=== PATIENT | male | born 1985 | race Caucasian/White ===

== ENCOUNTER 2016-08-20 10:24 | Emergency (ER) | payer MEDICARE ==
--- NOTE | 2016-08-20 11:19 | ER Document Report ---
ED Medical Screen (RME) - General Stated Complaint: FELL/FOOT PAIN Time seen by provider: 11:18 Mode of Arrival: Ambulatory Information source: Patient Notes: 31-year-old male slipped getting out of the bathtub yesterday and hit the wall injuring his dorsal left foot over the second and third metatarsals. It is swollen and bruised. He is walking with a limp. I have greeted and performed a rapid initial assessment of this patient. A comprehensive ED assessment, evaluation of the patient, analysis of test results , and completion of the medical decision making process will be contacted by additional ED providers. TRAVEL OUTSIDE OF THE [place] IN LAST 30 DAYS: No - Related Data Allergies/Adverse Reactions: diphenhydramine HCl [From Benadryl] Allergy (Mild, Verified 08/20/16 11:13) Hives Past Medical History - Social History Frequency of alcohol use: None Drug Abuse: None - Past Medical History Cardiac Medical History: Reports: Hx Hypercholesterolemia, Hx Hypertension Denies: Hx Atrial Fibrillation Pulmonary Medical History: Reports: Hx Asthma - inhalers, Hx Bronchitis, Hx Pneumonia, Hx Sleep Apnea - uses C-Pap Endocrine Medical History: Reports: Hx Diabetes Mellitus Type 2, Hx Hypothyroidism. Denies: Hx Diabetes Mellitus Type 1 Renal/ Medical History: Denies: Hx Peritoneal Dialysis GI Medical History: Reports: Hx Gastroesophageal Reflux Disease Musculoskeltal Medical History: Reports Hx Arthritis, Reports Hx Musculoskeletal Deformity Psychiatric Medical History: Reports: Hx Anxiety, Hx Depression Past Surgical History: Reports: Hx Adenoidectomy, Hx Myringotomy. Denies: Hx Abdominal Surgery, Hx Appendectomy, Hx Bowel Surgery, Hx Cardiac Catheterization , Hx Cardiac Surgery, Hx Cholecystectomy, Hx Genitourinary Surgery, Hx Kidney ( Renal Surgery), Hx Neurologic Surgery, Hx Nose Surgery, Hx Open Heart Surgery, Hx Oral Surgery, Hx Orthopedic Surgery, Hx Pancreatic Surgery, Hx Pituitary Surgery, Hx Rectal Surgery, Hx Testicular Surgery, Hx Thyroid Surgery, Hx Tonsillectomy, Hx Urinary Tract Surgery, Hx Vascular Surgery - Immunizations Hx Diphtheria, Pertussis, Tetanus Vaccination: No - unknown Physical Exam - Vital signs Vitals: Temp Pulse Resp BP Pulse Ox 97.8 F 101 H 18 142/87 H 97 08/20/16 10:32 08/20/16 10:32 08/20/16 10:32 08/20/16 10:32 08/20/16 10:32 Course - Vital Signs Vital signs: Temp Pulse Resp BP Pulse Ox 97.8 F 101 H 18 142/87 H 97 08/20/16 10:32 08/20/16 10:32 08/20/16 10:32 08/20/16 10:32 08/20/16 10:32
--- NOTE | 2016-08-20 12:44 | ER Document Report ---
ED Extremity Problem, Lower - General Chief Complaint: Foot Injury Stated Complaint: FELL/FOOT PAIN Time seen by provider: 12:41 Mode of Arrival: Ambulatory Information source: Patient Notes: 31-year-old male presents to ED for pain in his second toe on the left foot after kicking a wall accidentally yesterday. TRAVEL OUTSIDE OF THE [place] IN LAST 30 DAYS: No - HPI Patient complains to provider of: Injury, Pain, Swelling Location: 2nd Toe - Left, 3rd Toe Occurred: Yesterday Where: Home, Indoors Onset/Duration: Sudden Quality of pain: Achy, Sharp Severity: Moderate Pain Level: 2 Context: Other - Hit toes on wall and did not at the time Recent injury: Yes Associated symptoms: Painful ambulation Exacerbated by: Movement, Walking Relieved by: Elevation, Ice, Rest - Related Data Allergies/Adverse Reactions: diphenhydramine HCl [From Benadryl] Allergy (Mild, Verified 08/20/16 11:13) Hives Past Medical History - General Information source: Patient - Social History Smoking Status: Never Smoker Frequency of alcohol use: None Drug Abuse: None Lives with: Family Family History: CVA, DM, Hyperlipidemia, Hypertension, Malignancy, Thyroid Disfunction Patient has suicidal ideation: No Patient has homicidal ideation: No - Past Medical History Cardiac Medical History: Reports: Hx Hypercholesterolemia, Hx Hypertension Pulmonary Medical History: Reports: Hx Asthma - inhalers, Hx Bronchitis, Hx Pneumonia, Hx Sleep Apnea - uses C-Pap EENT Medical History: Reports: None Neurological Medical History: Reports: None Endocrine Medical History: Reports: Hx Diabetes Mellitus Type 2, Hx Hypothyroidism. Denies: Hx Diabetes Mellitus Type 1 Renal/ Medical History: Reports: None Malignancy Medical History: Reports None GI Medical History: Reports: Hx Gastroesophageal Reflux Disease Musculoskeltal Medical History: Reports Hx Arthritis, Reports Hx Musculoskeletal Deformity Skin Medical History: Reports None Psychiatric Medical History: Reports: Hx Anxiety, Hx Depression Traumatic Medical History: Reports: None Infectious Medical History: Reports: None Past Surgical History: Reports: Hx Adenoidectomy, Hx Myringotomy, Other - Reconstruction of face after dog attack - Immunizations Hx Diphtheria, Pertussis, Tetanus Vaccination: No - unknown Review of Systems - Review of Systems Constitutional: No symptoms reported EENT: No symptoms reported Cardiovascular: No symptoms reported Respiratory: No symptoms reported Gastrointestinal: No symptoms reported Genitourinary: No symptoms reported Male Genitourinary: No symptoms reported Musculoskeletal: Other - Pain and injury to second and third toe on left foot Skin: No symptoms reported Hematologic/Lymphatic: No symptoms reported Neurological/Psychological: No symptoms reported -: Yes All other systems reviewed and negative Physical Exam - Vital signs Vitals: Temp Pulse Resp BP Pulse Ox 97.8 F 101 H 18 142/87 H 97 08/20/16 10:32 08/20/16 10:32 08/20/16 10:32 08/20/16 10:32 08/20/16 10:32 Interpretation: Normal - General General appearance: Appears well, Alert - HEENT Head: Normocephalic, Atraumatic Eyes: Normal Pupils: PERRL - Respiratory Respiratory status: No respiratory distress Chest status: Nontender Breath sounds: Normal Chest palpation: Normal - Cardiovascular Rhythm: Regular Heart sounds: Normal auscultation Murmur: No - Abdominal Inspection: Normal Distension: No distension Bowel sounds: Normal Tenderness: Nontender Organomegaly: No organomegaly - Back Back: Normal, Nontender - Extremities General upper extremity: Normal inspection, Nontender, Normal color, Normal ROM , Normal temperature General lower extremity: Normal temperature, Normal weight bearing. No: Jona' s sign Foot: Tender, Ecchymosis - Second and third toe, Edema, Metatarsal compress. pain - second and third toe second and third, No evidence of FB - Second and third toe, Tender 5th metatarsal. No: Unable to bear weight - Neurological Neuro grossly intact: Yes Cognition: Normal Orientation: AAOx4 [place] Coma Scale Eye Opening: Spontaneous [place] Coma Scale Verbal: Oriented [place] Coma Scale Motor: Obeys Commands [place] Coma Scale Total: 15 Speech: Normal Motor strength normal: LUE, RUE, LLE, RLE Sensory: Normal - Psychological Associated symptoms: Normal affect, Normal mood - Skin Skin Temperature: Warm Skin Moisture: Dry Skin Color: Normal Course - Re-evaluation Re-evalutation: 08/20/16 15:37 Sabino taped second toe to the third toe and then assessed the patient to push gone - Vital Signs Vital signs: Temp Pulse Resp BP Pulse Ox 97.8 F 90 18 140/80 H 100 08/20/16 12:49 08/20/16 12:49 08/20/16 12:49 08/20/16 12:49 08/20/16 12:49 - Diagnostic Test Radiology reviewed: Image reviewed, Reports reviewed Discharge - Discharge Clinical Impression: Contusion of fourth toe of left foot Qualifiers: Encounter type: initial encounter Qualified Code(s): S90.122A - Contusion of left lesser toe(s) without damage to nail, initial encounter Condition: Stable Disposition: HOME, SELF-CARE Additional Instructions: CONTUSION: Your injury has resulted in a contusion -- a crushing of the deep tissues. No injury to important structures was detected during the physician's exam. Contusions vary in the amount of pain they cause, and in the length of time required for healing. Typically, the area will become bruised, and will remain painful to touch for two or three weeks. However, most patients are back to working and playing within a few days. After the initial period of rest and cold-packs, your symptoms (together with the doctor's recommendations) will determine how rapidly you can get back to full activity. Usually this means "do what feels okay, but don't do things that hurt." If re-examination was recommended, it's important to follow up as instructed. Call the doctor or return any time if pain increases, if swelling becomes severe, if you develop numbness or weakness in an injured extremity, or if any other alarming symptoms occur. USE OF TYLENOL (ACETAMINOPHEN): Acetaminophen may be taken for pain relief or fever control. It's much safer than aspirin, offering a wider range of "safe" dosages. It is safe during . Some brand names are Tylenol, Panadol, Datril, Anacin 3, Tempra, and Liquiprin. Acetaminophen can be repeated every four hours. The following are maximum recommended dosages: WEIGHT Dose Drops Elixir Chewable( 80mg) (LBS.) drprs=droppers tsp=teaspoon 6 40 mg 0.4 ml (1/2) 6-11 80 mg 0.8 ml (full) tsp 1 tab 12-16 120 mg 1 1/2 drprs 3/4 tsp 1 1/2 tabs 17-23 160 mg 2 drprs 1 tsp 2 tabs 24-30 240 mg 3 drprs 1 1/2 tsp 3 tabs 30-35 320 mg 2 tsp 4 tabs 36-41 360 mg 2 1/4 tsp 4 1/2 tabs 42-47 400 mg 2 1/2 tsp 5 tabs 48-53 480 mg 3 tsp 6 tabs 54-59 520 mg 3 1/4 tsp 6 1/2 tabs 60-64 560 mg 3 1/2 tsp 7 tabs 65-70 600 mg 3 3/4 tsp 7 1/2 tabs 71-76 640 mg 4 tsp 8 tabs 77-82 720 mg 4 1/2 tsp 9 tabs 83-88 800 mg 5 tsp 10 tabs >89 pounds or adults 650 mg to 900 mg Acetaminophen can be repeated every four hours. Maximum dose not to exceed 4000 mg a day. These maximum recommended dosages are slightly higher than the dosages written on the product container, but these dosages are very safe and below the toxic dosage for acetaminophen. ICE & ELEVATION: Apply ice packs frequently against the painful area. Many different schedules are recommended, such as "20 minutes on, 20 minutes off" or "one hour ice, two hours rest." If you need to work, you may need to go longer between ice treatments. You should plan to have the area ice packed AT LEAST one- fourth of the time. The ice should be applied over the wrap, tape, or splint, or over a layer of cloth -- not directly against the skin. Some ice bags have a built-in cloth and can be put directly on the skin. Your injured part should be elevated as much as possible over the next 48 hours. Try to keep the injury above the level of the heart. Avoid use of the injured area. Elevation and rest will decrease the swelling. USE OF VXJH-TDV-SREJJKC IBUPROFEN: Ibuprofen (Advil, Nuprin, Medipren, Motrin IB) is a medication for fever and pain control. In addition, it has anti- inflammatory effects which may be beneficial, especially in the treatment of injuries. It's best to take ibuprofen with food. Persons with ulcer disease or allergy to aspirin should notify their physician of this before taking ibuprofen. Ibuprofen can be given every four to six hours, for a total of four doses daily. Age Pain or fever dose Antiinflammatory dose 6-8 yr 200 mg (1 tab) 200 mg (1 tab) 9-11 yr 200 mg (1 tab) 200-400 mg (1-2 tab) 11-14 yr 200-400 mg (1-2 tab) 400 mg (2 tab) 15-adult 400 mg (2 tab) 600 mg (3 tab) FOLLOW-UP CARE: If you have been referred to a physician for follow-up care, call the physician s office for an appointment as you were instructed or within the next two days. If you experience worsening or a significant change in your symptoms, notify the physician immediately or return to the Emergency Department at any time for re-evaluation. Forms: Elevated Blood Pressure Referrals: SAM BARRIOS MD [Primary Care Provider] - Follow up in 3-5 days
[2016-08-20 12:50] VITALS: BP 140/80
== END 2016-08-20 12:51 | disposition home or self-care (01) ==
LOC: ER 10:24
DX: S90.122A Contusion of left lesser toe(s) without damage to nail, initial encounter (principal); W18.2XXA Fall in (into) shower or empty bathtub, initial encounter; Y92.002 Bathroom of unspecified non-institutional (private) residence as the place of occurrence of the external cause; I10 Essential (primary) hypertension; J45.909 Unspecified asthma, uncomplicated; E11.9 Type 2 diabetes mellitus without complications; Z88.8 Allergy status to other drugs, medicaments and biological substances
CPT/HCPCS: 99283

== ENCOUNTER 2017-06-29 02:16 | Emergency (ER) | payer MEDICARE, MEDICAID ==
[2017-06-29 02:23] VITALS: BP 150/89
[2017-06-29] MEDS ORDERED: OXYCODONE-ACETAMINOPHEN 5-325 MG TABLET PO ONE (02:44)
[2017-06-29] MEDS ORDERED: CLINDAMYCIN HCL 150 MG CAPSULE PO ONE (02:44)
[2017-06-29] MEDS ORDERED: HYDROCODONE/ACETAMINOPHEN 5-325 MG 6 TAB/DSPK PO PRN (02:44)
--- NOTE | 2017-06-29 02:48 | ER Document Report ---
ED Oral Problem - General Chief Complaint: Dental Injury Stated Complaint: TEETH CRACKED Time Seen by Provider: 06/29/17 02:31 Mode of Arrival: Ambulatory Information source: Patient, [facility] Records Notes: This 32-year-old male patient comes emergency room for severe pain in 2 teeth in his left upper jaw. He said the pain started about 2 AM yesterday which is just over 24 hours ago. He did have some pain last week and saw a local dentist and was started on amoxicillin approximately 1 week ago. He states the dentist told him to come to the emergency room to get a stronger antibiotic. TRAVEL OUTSIDE OF THE [place] IN LAST 30 DAYS: No - Related Data Allergies/Adverse Reactions: diphenhydramine HCl [From Benadryl] Allergy (Mild, Verified 08/20/16 11:13) Hives Past Medical History - General Information source: Patient, [facility] Records - Social History Smoking Status: Unknown if Ever Smoked Cigarette use (# per day): No Chew tobacco use (# tins/day): No Smoking Education Provided: No Frequency of alcohol use: None Drug Abuse: None Occupation: Unemployed Lives with: Parents Family History: CVA, DM, Hyperlipidemia, Hypertension, Malignancy, Thyroid Disfunction Patient has suicidal ideation: No Patient has homicidal ideation: No - Past Medical History Cardiac Medical History: Reports: Hx Hypercholesterolemia, Hx Hypertension Pulmonary Medical History: Reports: Hx Asthma - inhalers, Hx Bronchitis, Hx Pneumonia, Hx Sleep Apnea - uses C-Pap EENT Medical History: Reports: None Neurological Medical History: Reports: None Endocrine Medical History: Reports: Hx Diabetes Mellitus Type 2, Hx Hypothyroidism Renal/ Medical History: Reports: None GI Medical History: Reports: Hx Gastroesophageal Reflux Disease Musculoskeltal Medical History: Reports Hx Arthritis, Reports Hx Musculoskeletal Deformity Psychiatric Medical History: Reports: Hx Anxiety, Hx Depression Past Surgical History: Reports: Hx Adenoidectomy, Hx Myringotomy, Other - Reconstruction of face after dog attack - Immunizations Hx Diphtheria, Pertussis, Tetanus Vaccination: No - unknown Review of Systems - Review of Systems Constitutional: No symptoms reported EENT: Dental problem Cardiovascular: No symptoms reported Respiratory: No symptoms reported Gastrointestinal: No symptoms reported Genitourinary: No symptoms reported Musculoskeletal: No symptoms reported Skin: No symptoms reported Hematologic/Lymphatic: No symptoms reported Neurological/Psychological: No symptoms reported Physical Exam - Vital signs Vitals: Temp Pulse Resp BP Pulse Ox 97.9 F 95 19 150/89 H 98 06/29/17 02:17 06/29/17 02:17 06/29/17 02:17 06/29/17 02:17 06/29/17 02:17 Interpretation: Hypertensive - General General appearance: Appears well, Alert In distress: Mild - HEENT Head: Normocephalic, Atraumatic Eyes: Normal Pupils: PERRL Mouth/Lips: Other - The left upper first and second premolars are decayed and quite tender to percuss. There is some edema to the gums and tissues around these teeth, there is no discernible abscess that could be drained. - Respiratory Respiratory status: No respiratory distress - Cardiovascular Rhythm: Regular - Abdominal Inspection: Morbidly Obese - Back Back: Normal - Extremities General upper extremity: Normal inspection General lower extremity: Normal inspection - Neurological Neuro grossly intact: Yes - Psychological Associated symptoms: Normal affect, Normal mood - Skin Skin Temperature: Warm Skin Moisture: Dry Skin Color: Normal Course - Vital Signs Vital signs: Temp Pulse Resp BP Pulse Ox 97.9 F 95 19 150/89 H 98 06/29/17 02:17 06/29/17 02:17 06/29/17 02:17 06/29/17 02:17 06/29/17 02:17 Discharge - Discharge Clinical Impression: Pain due to dental caries Condition: Stable Disposition: HOME, SELF-CARE Additional Instructions: Dental Infection or Abscess You have an infection, perhaps an abscess (pus formation) of the gum around one of your teeth, which is probably decayed. If there is an abscess, it may drain on its own or it may need to be opened or lanced. Severe swelling or drainage around a tooth usually means a deep dental abscess which usually requires evaluation and treatment by a dentist or oral surgeon. Antibiotics may be prescribed while awaiting dental treatment. If you develop high fever with chills, worsening pain, or increasing swelling in the area, see a dentist or oral surgeon immediately or return to the Emergency Department immediately. //////////////////////////////////////////////////////////////////////////////// //////////////////////////////////////////////////////////////////////////////// /////////////////// Stop taking the amoxicillin. Start taking the clindamycin as prescribed. Take the pain medications as needed. Follow-up with your dentist as early as possible next week. RETURN TO THE EMERGENCY ROOM IF ANY NEW OR WORSENING SYMPTOMS. Prescriptions: Clindamycin HCl 300 mg PO QID #28 capsule Oxycodone HCl/Acetaminophen [Percocet 5-325 mg Tablet] 1 tab PO ASDIR PRN #15 tablet PRN Reason:
== END 2017-06-29 03:02 | disposition home or self-care (01) ==
LOC: ER 02:16
DX: K02.9 Dental caries, unspecified (principal); K08.89 Other specified disorders of teeth and supporting structures; J45.909 Unspecified asthma, uncomplicated; I10 Essential (primary) hypertension; E11.9 Type 2 diabetes mellitus without complications; Z88.8 Allergy status to other drugs, medicaments and biological substances
CPT/HCPCS: 99282; A9270 ×3

== ENCOUNTER 2018-03-13 02:57 | Emergency (ER) | payer MEDICARE, MEDICAID ==
[2018-03-13] MEDS ORDERED: METHYLPREDNISOLONE INJ 125 MG/2 ML SDV IV ONE (03:14)
[2018-03-13] MEDS ORDERED: IPRATROPIUM/ALBUTEROL 0.5-2.5 MG/3 ML AMPUL NEB ONE (03:14)
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
[2018-03-13 03:19] LABS: ABSOLUTE EOSINOPHILS # (AUTO) 0.1 10^3/uL (0.0-0.6); ABSOLUTE LYMPHOCYTES (AUTO) 2.3 10^3/uL (0.5-4.7); ABSOLUTE MONOCYTES (AUTO) 0.8 10^3/uL (0.1-1.4); ABSOLUTE NEUT (AUTO) 9.1 10^3/uL (1.7-8.2); BASOPHILS % (AUTO) 0.2 % (0-2); HEMOGLOBIN 15.2 g/dL (13.5-17.0); LYMPHOCYTES % (AUTO) 18.3 % (13-45); MEAN CORPUSCULAR HEMOGLOBIN 28.3 pg (27.0-33.4); MEAN CORPUSCULAR HGB CONC 33.7 g/dL (32.0-36.0); MEAN CORPUSCULAR VOLUME 84 fl (80-97); MONOCYTES % (AUTO) 6.8 % (3-13); PLATELET COUNT 278 10^3/uL (150-450); RED BLOOD COUNT 5.36 10^6/uL (4.35-5.55); RED CELL DISTRIBUTION WIDTH 15.5 % (11.5-14.0); SEGMENTED NEUTROPHILS % (AUTO) 73.7 % (42-78); TOTAL CELLS COUNTED % (AUTO) 100 %; WHITE BLOOD COUNT 12.3 10^3/uL (4.0-10.5)
[2018-03-13] MEDS ORDERED: ONDANSETRON HCL INJ/PF 4 MG/2 ML SDV IV ONE (03:19)
[2018-03-13 03:31] LABS: ALANINE AMINOTRANSFERASE 52 U/L (21-72); ALBUMIN 4.1 g/dL (3.5-5.0); ALKALINE PHOSPHATASE 90 U/L (38-126); ANION GAP 12 (5-19); ASPARTATE AMINO TRANSFERASE 29 U/L (17-59); BILIRUBIN,DIRECT 0.3 mg/dL (0.0-0.4); BILIRUBIN,TOTAL 0.5 mg/dL (0.2-1.3); BLOOD UREA NITROGEN 18 mg/dL (7-20); CALCIUM 9.6 mg/dL (8.4-10.2); CARBON DIOXIDE 26 mmol/L (22-30); CHLORIDE 101 mmol/L (98-107); CREATINE KINASE 34 U/L (55-170); GLUCOSE 200 mg/dL (75-110); POTASSIUM 4.4 mmol/L (3.6-5.0); SODIUM 139.2 mmol/L (137-145); TOTAL PROTEIN 7.1 g/dL (6.3-8.2)
[2018-03-13 03:43] LABS: CREATINE KINASE MB 0.46 ng/mL (<4.55)
[2018-03-13 03:44] LABS: TROPONIN I < 0.012 ng/mL
--- NOTE | 2018-03-13 08:26 | EKG REPORT ---
SEVERITY:- NORMAL ECG - SINUS RHYTHM : Confirmed by: Silvio Izquierdo MD 13-Mar-2018 07:36:37
--- NOTE | 2018-03-13 08:27 | RADIOLOGY REPORT (SQ) ---
EXAM DESCRIPTION: X-ray two view chest CLINICAL HISTORY: 32 years Male, short of breath COMPARISON: Prior two-view chest performed on 05/04/2016 TECHNIQUE: PA and Lateral views of the chest performed on 03/13/2018 at 4:06 AM. FINDINGS: The lungs are well expanded and are clear. The costophrenic sulci are clear. There is no evidence of a pneumothorax. The cardiac silhouette is normal in size. The mediastinal contours are normal. No acute osseous abnormalities are identified. No focal soft tissue abnormalities are identified. IMPRESSION: No evidence of acute intrathoracic disease. No significant change when compared to the prior study.
[2018-03-13 10:55] VITALS: BP 116/60
== END 2018-03-13 10:55 | disposition home or self-care (01) ==
LOC: ER 02:57
DX: J45.909 Unspecified asthma, uncomplicated (principal); Z79.899 Other long term (current) drug therapy; Z77.110 Contact with and (suspected) exposure to air pollution; R06.02 Shortness of breath; I10 Essential (primary) hypertension; R11.0 Nausea; F41.9 Anxiety disorder, unspecified; R61 Generalized hyperhidrosis; R00.0 Tachycardia, unspecified; E11.9 Type 2 diabetes mellitus without complications; Z79.4 Long term (current) use of insulin; Z88.8 Allergy status to other drugs, medicaments and biological substances
CPT/HCPCS: 93005; 94640; 99285; 96374; 96375; 36415; 82553; 82962; 82550; 85025; 80053; 84484; 71046; 93010; J2930; J2405; A9270; J7620

== ENCOUNTER 2018-09-14 12:23 | Emergency (ER) | payer MEDICARE, MEDICAID ==
--- NOTE | 2018-09-14 12:37 | ER Document Report ---
ED Oral Problem - General Chief Complaint: Sore Throat Stated Complaint: SORE THROAT Time Seen by Provider: 09/14/18 12:35 Primary Care Provider: SAM BARRIOS MD [Primary Care Provider] - Follow up as needed Mode of Arrival: Ambulatory Information source: Patient TRAVEL OUTSIDE OF THE [place] IN LAST 30 DAYS: No - HPI Patient complains to provider of: Sore throat - pt with c/o ST for the past 2-3 days. - Related Data Allergies/Adverse Reactions: diphenhydramine HCl [From Benadryl] Allergy (Mild, Verified 08/20/16 11:13) Hives Past Medical History - General Information source: Patient - Social History Smoking Status: Never Smoker Cigarette use (# per day): No Chew tobacco use (# tins/day): No Family History: CVA, DM, Hyperlipidemia, Hypertension, Malignancy, Thyroid Disfunction - Past Medical History Cardiac Medical History: Reports: Hx Hypercholesterolemia, Hx Hypertension Denies: Hx Atrial Fibrillation Pulmonary Medical History: Reports: Hx Asthma - inhalers, Hx Bronchitis, Hx Pneumonia, Hx Sleep Apnea - uses C-Pap Endocrine Medical History: Reports: Hx Diabetes Mellitus Type 2, Hx Hypothyroidism. Denies: Hx Diabetes Mellitus Type 1 Renal/ Medical History: Denies: Hx Peritoneal Dialysis GI Medical History: Reports: Hx Gastroesophageal Reflux Disease Musculoskeletal Medical History: Reports Hx Arthritis, Reports Hx Muscul oskeletal Deformity Psychiatric Medical History: Reports: Hx Anxiety, Hx Depression Past Surgical History: Reports: Hx Adenoidectomy, Hx Myringotomy, Other - Reconstruction of face after dog attack. Denies: Hx Abdominal Surgery, Hx Appendectomy, Hx Bowel Surgery, Hx Cardiac Catheterization, Hx Cardiac Surgery, Hx Cholecystectomy, Hx Genitourinary Surgery, Hx Kidney (Renal Surgery), Hx Neurologic Surgery, Hx Nose Surgery, Hx Open Heart Surgery, Hx Oral Surgery, Hx Orthopedic Surgery, Hx Pancreatic Surgery, Hx Pituitary Surgery, Hx Rectal Surgery, Hx Testicular Surgery, Hx Thyroid Surgery, Hx Tonsillectomy, Hx Urinary Tract Surgery, Hx Vascular Surgery - Immunizations Hx Diphtheria, Pertussis, Tetanus Vaccination: No - unknown Review of Systems - Review of Systems Constitutional: No symptoms reported EENT: See HPI, Throat pain Cardiovascular: No symptoms reported Respiratory: No symptoms reported Gastrointestinal: No symptoms reported -: Yes All other systems reviewed and negative Physical Exam - Vital signs Vitals: Temp Pulse Resp BP Pulse Ox 99.9 F 108 H 20 145/101 H 95 09/14/18 12:30 09/14/18 12:30 09/14/18 12:30 09/14/18 12:30 09/14/18 12:30 - General General appearance: Appears well In distress: None - HEENT Mucous membranes: Normal Pharynx: Erythema. No: Exudate Neck: Normal - Respiratory Respiratory status: No respiratory distress Breath sounds: Normal - Cardiovascular Rhythm: Regular Heart sounds: Normal auscultation Course - Vital Signs Vital signs: Temp Pulse Resp BP Pulse Ox 99.9 F 108 H 20 145/101 H 95 09/14/18 12:30 09/14/18 12:30 09/14/18 12:30 09/14/18 12:30 09/14/18 12:30 - Laboratory Laboratory results interpreted by me: strep neg Discharge - Discharge Clinical Impression: Pharyngitis Qualifiers: Pharyngitis/tonsillitis etiology: unspecified etiology Qualified Code(s): J02.9 - Acute pharyngitis, unspecified Condition: Stable Disposition: HOME, SELF-CARE Instructions: Sore Throat ([facility]) Additional Instructions: rest, take meds as prescribed, return if worse Prescriptions: Amoxicillin Trihydrate [Amoxil 400 mg/5 mL Suspension] 5 ml PO TID #1 bottle Referrals: SAM BARRIOS MD [Primary Care Provider] - Follow up as needed
[2018-09-14 13:25] VITALS: BP 145/92
== END 2018-09-14 13:25 | disposition home or self-care (01) ==
LOC: ER 12:23
DX: J02.9 Acute pharyngitis, unspecified (principal); E78.00 Pure hypercholesterolemia, unspecified; I10 Essential (primary) hypertension; E11.9 Type 2 diabetes mellitus without complications; E03.9 Hypothyroidism, unspecified
CPT/HCPCS: 87070; 87880; 99283

== ENCOUNTER 2019-06-23 10:09 | Emergency (ER) | payer MEDICARE, MEDICAID ==
--- NOTE | 2019-06-23 12:04 | ER Document Report ---
ED Medical Screen (RME) - General Chief Complaint: Abdominal Pain Stated Complaint: VOMITING/DIARRHEA/ABDOMINAL PAIN Time Seen by Provider: 06/23/19 11:53 Primary Care Provider: SAM BARRIOS MD [Primary Care Provider] - Follow up as needed Notes: 34-year-old male presents with persistent nausea/vomiting/diarrhea after changing his insulin regimen for the past week. Patient was on Trulicity and is now on a once weekly injection, does not know the name. Patient also complains of right flank pain but no right upper quadrant pain. Patient states that he cannot hold any food down. Denies hematuria. Patient denies any abnormally high blood sugars. Exam: Obese male in no acute distress, shirt is soaked with perspiration. Patient with tenderness to palpation over the right CVAT along to the mid axillary line on the right side, no epigastric tenderness to palpation although abdominal exam is limited in triage I have greeted and performed a rapid initial assessment of this patient. A comprehensive ED assessment and evaluation of the patient, analysis of test results and completion of medical decision making process will be conducted by an additional ED providers. TRAVEL OUTSIDE OF THE [place] IN LAST 30 DAYS: No - Related Data Allergies/Adverse Reactions: diphenhydramine HCl [From Benadryl] Allergy (Mild, Verified 06/23/19 11:53) Hives Past Medical History - Past Medical History Cardiac Medical History: Reports: Hx Hypercholesterolemia, Hx Hypertension Denies: Hx Atrial Fibrillation Pulmonary Medical History: Reports: Hx Asthma - inhalers, Hx Bronchitis, Hx Pneumonia, Hx Sleep Apnea - uses C-Pap Endocrine Medical History: Reports: Hx Diabetes Mellitus Type 2, Hx Hypothyroidism. Denies: Hx Diabetes Mellitus Type 1 Renal/ Medical History: Denies: Hx Peritoneal Dialysis GI Medical History: Reports: Hx Gastroesophageal Reflux Disease Musculoskeltal Medical History: Reports Hx Arthritis, Reports Hx Musculoskeletal Deformity Psychiatric Medical History: Reports: Hx Anxiety, Hx Depression Past Surgical History: Reports: Hx Adenoidectomy, Hx Myringotomy, Other - Reconstruction of face after dog attack. Denies: Hx Abdominal Surgery, Hx Appendectomy, Hx Bowel Surgery, Hx Cardiac Catheterization, Hx Cardiac Surgery, Hx Cholecystectomy, Hx Genitourinary Surgery, Hx Kidney (Renal Surgery), Hx Neurologic Surgery, Hx Nose Surgery, Hx Open Heart Surgery, Hx Oral Surgery, Hx Orthopedic Surgery, Hx Pancreatic Surgery, Hx Pituitary Surgery, Hx Rectal Surgery, Hx Testicular Surgery, Hx Thyroid Surgery, Hx Tonsillectomy, Hx Urinary Tract Surgery, Hx Vascular Surgery - Immunizations Hx Diphtheria, Pertussis, Tetanus Vaccination: No - unknown Physical Exam - Vital signs Vitals: Temp Pulse Resp BP Pulse Ox 98.7 F 102 H 18 144/79 H 95 06/23/19 10:17 06/23/19 10:17 06/23/19 10:17 06/23/19 10:17 06/23/19 10:17 Course - Vital Signs Vital signs: Temp Pulse Resp BP Pulse Ox 98.7 F 102 H 18 144/79 H 95 06/23/19 10:17 06/23/19 10:17 06/23/19 10:17 06/23/19 10:17 06/23/19 10:17 Doctor's Discharge - Discharge Referrals: SAM BARRIOS MD [Primary Care Provider] - Follow up as needed
[2019-06-23 12:44] LABS: ABSOLUTE BASOPHILS # (AUTO) 0.2 10^3/uL (0.0-0.2); ABSOLUTE EOSINOPHILS # (AUTO) 0.2 10^3/uL (0.0-0.6); ABSOLUTE LYMPHOCYTES (AUTO) 2.7 10^3/uL (0.5-4.7); ABSOLUTE NEUT (AUTO) 8.4 10^3/uL (1.7-8.2); BASOPHILS % (AUTO) 1.3 % (0-2); EOSINOPHILS % (AUTO) 1.6 % (0-6); HEMATOCRIT 50.6 % (37.9-51.0); HEMOGLOBIN 16.9 g/dL (13.5-17.0); LYMPHOCYTES % (AUTO) 21.5 % (13-45); MEAN CORPUSCULAR HEMOGLOBIN 27.9 pg (27.0-33.4); MEAN CORPUSCULAR HGB CONC 33.4 g/dL (32.0-36.0); MEAN CORPUSCULAR VOLUME 84 fl (80-97); MONOCYTES % (AUTO) 8.2 % (3-13); PLATELET COUNT 294 10^3/uL (150-450); RED BLOOD COUNT 6.05 10^6/uL (4.35-5.55); RED CELL DISTRIBUTION WIDTH 14.7 % (11.5-14.0); SEGMENTED NEUTROPHILS % (AUTO) 67.4 % (42-78); TOTAL CELLS COUNTED % (AUTO) 100 %; WHITE BLOOD COUNT 12.4 10^3/uL (4.0-10.5)
[2019-06-23 13:13] LABS: ALBUMIN 4.6 g/dL (3.5-5.0); ALKALINE PHOSPHATASE 116 U/L (38-126); ANION GAP 14 (5-19); ASPARTATE AMINO TRANSFERASE 21 U/L (17-59); BILIRUBIN,DIRECT 0.2 mg/dL (0.0-0.4); BILIRUBIN,TOTAL 0.5 mg/dL (0.2-1.3); BLOOD UREA NITROGEN 10 mg/dL (7-20); CALCIUM 10.3 mg/dL (8.4-10.2); CARBON DIOXIDE 27 mmol/L (22-30); CHLORIDE 99 mmol/L (98-107); GLUCOSE 178 mg/dL (75-110); POTASSIUM 4.6 mmol/L (3.6-5.0)
[2019-06-23] MEDS ORDERED: FENTANYL CITRATE INJ/PF 100 MCG/2 ML AMPUL IV ONE (14:47)
[2019-06-23] MEDS ORDERED: ONDANSETRON HCL INJ/PF 4 MG/2 ML SDV IV ONE (14:47)
--- NOTE | 2019-06-23 14:54 | ER Document Report ---
ED General - General Chief Complaint: Abdominal Pain Stated Complaint: VOMITING/DIARRHEA/ABDOMINAL PAIN Time Seen by Provider: 06/23/19 11:53 Primary Care Provider: SAM BARRIOS MD [Primary Care Provider] - Follow up as needed Mode of Arrival: Ambulatory Information source: Patient TRAVEL OUTSIDE OF THE [place] IN LAST 30 DAYS: No - HPI Onset: Other - For the past 3 weeks patient has noted a change in his GI tract in terms of nausea vomiting diarrhea with an increase in his medications of Trulicity. Patient reports that his doctor has decreased his Trulicity dose in hopes to reduce the GI symptoms associated with this medication. Onset/Duration: Intermittent Quality of pain: Cramping Severity: Moderate Pain Level: 0 Associated symptoms: Diarrhea, Nausea, Vomiting Relieved by: Other - No relief which is why patient came to the emergency department today. Similar symptoms previously: Yes - Patient reports that he had been on Trulicity at higher dose before and was - Related Data Allergies/Adverse Reactions: diphenhydramine HCl [From Benadryl] Allergy (Mild, Verified 06/23/19 11:53) Hives Past Medical History - Social History Smoking Status: Former Smoker Family History: CVA, DM, Hyperlipidemia, Hypertension, Malignancy, Thyroid Disfunction Patient has suicidal ideation: No Patient has homicidal ideation: No - Past Medical History Cardiac Medical History: Reports: Hx Hypercholesterolemia, Hx Hypertension Denies: Hx Atrial Fibrillation Pulmonary Medical History: Reports: Hx Asthma - inhalers, Hx Bronchitis, Hx Pneumonia, Hx Sleep Apnea - uses C-Pap Endocrine Medical History: Reports: Hx Diabetes Mellitus Type 2, Hx Hypothyroidism. Denies: Hx Diabetes Mellitus Type 1 Renal/ Medical History: Denies: Hx Peritoneal Dialysis GI Medical History: Reports: Hx Gastroesophageal Reflux Disease Musculoskeletal Medical History: Reports Hx Arthritis, Reports Hx Musculoskeletal Deformity Psychiatric Medical History: Reports: Hx Anxiety, Hx Depression Past Surgical History: Reports: Hx Adenoidectomy, Hx Myringotomy, Other - Reconstruction of face after dog attack. Denies: Hx Abdominal Surgery, Hx Appendectomy, Hx Bowel Surgery, Hx Cardiac Catheterization, Hx Cardiac Surgery, Hx Cholecystectomy, Hx Genitourinary Surgery, Hx Kidney (Renal Surgery), Hx Neurologic Surgery, Hx Nose Surgery, Hx Open Heart Surgery, Hx Oral Surgery, Hx Orthopedic Surgery, Hx Pancreatic Surgery, Hx Pituitary Surgery, Hx Rectal Surgery, Hx Testicular Surgery, Hx Thyroid Surgery, Hx Tonsillectomy, Hx Urinary Tract Surgery, Hx Vascular Surgery - Immunizations Hx Diphtheria, Pertussis, Tetanus Vaccination: No - unknown Review of Systems - Review of Systems Constitutional: See HPI EENT: No symptoms reported Cardiovascular: No symptoms reported Respiratory: No symptoms reported Gastrointestinal: No symptoms reported, See HPI Genitourinary: No symptoms reported Physical Exam - Vital signs Vitals: Temp Pulse Resp BP Pulse Ox 98.7 F 102 H 18 144/79 H 95 06/23/19 10:17 06/23/19 10:17 06/23/19 10:17 06/23/19 10:06/23/19 10:17 Interpretation: Normal - General General appearance: Appears well, Alert In distress: Mild Notes: Obese - HEENT Head: Normocephalic, Atraumatic Eyes: Normal Pupils: PERRL - Respiratory Respiratory status: No respiratory distress Chest status: Nontender Breath sounds: Normal Chest palpation: Normal - Cardiovascular Rhythm: Regular Heart sounds: Normal auscultation Murmur: No - Abdominal Inspection: Normal Distension: No distension Bowel sounds: Normal Tenderness: Nontender Organomegaly: No organomegaly - Back Back: Normal, Nontender - Extremities General upper extremity: Normal inspection, Nontender, Normal color, Normal ROM, Normal temperature General lower extremity: Normal inspection, Nontender, Normal color, Normal ROM, Normal temperature, Normal weight bearing. No: Jona's sign - Neurological Neuro grossly intact: Yes Cognition: Normal Orientation: AAOx4 [place] Coma Scale Eye Opening: Spontaneous [place] Coma Scale Verbal: Oriented [place] Coma Scale Motor: Obeys Commands [place] Coma Scale Total: 15 Speech: Normal Motor strength normal: LUE, RUE, LLE, RLE Sensory: Normal - Psychological Associated symptoms: Normal affect, Normal mood - Skin Skin Temperature: Warm Skin Moisture: Dry Skin Color: Normal Location of irregularity: Other - Left upper extremity with some soft tissue swelling erythema noted at the IV site that was used during the IV contrast for the CT scan of abdomen and pelvis. Patient has an application of ice pack over the area. No complaints of pain. Patient has an instruction sheet as to how to manage this IV contrast extravasation into the soft tissue. This instruction was given by the nurse staff of the radiology department. Course - Vital Signs Vital signs: Temp Pulse Resp BP Pulse Ox 98.4 F 114 H 16 134/100 H 95 06/23/19 15:38 06/23/19 15:38 06/23/19 15:38 06/23/19 15:38 06/23/19 15:38 - Laboratory Result Diagrams: 06/23/19 12:16 06/23/19 12:16 Laboratory results interpreted by me: 06/23/19 06/23/19 06/23/19 12:16 12:16 12:16 WBC 12.4 H RBC 6.05 H RDW 14.7 H Absolute Neuts (auto) 8.4 H Glucose 178 H Calcium 10.3 H Urine Glucose (UA) >=500 H - Diagnostic Test Radiology reviewed: Image reviewed, Reports reviewed Discharge - Discharge Clinical Impression: Nausea & vomiting, Diarrhea, Abdominal pain Condition: Good Disposition: HOME, SELF-CARE Instructions: Abdominal Pain ([facility]), Antinausea Medication ([facility]), Vomiting ([facility]) Prescriptions: Ondansetron [Zofran Odt 4 mg Tablet] 1 - 2 tab PO Q6H PRN #15 tab.rapdis PRN Reason: For Nausea/Vomiting Referrals: SAM BARRIOS MD [Primary Care Provider] - Follow up as needed
[2019-06-23 15:14] LABS: APPEARANCE,URINE CLEAR; BILIRUBIN,URINE NEGATIVE (NEGATIVE); COLOR,URINE STRAW; GLUCOSE, URINE >=500 mg/dL (NEGATIVE); KETONES,URINE NEGATIVE (NEGATIVE); LEUKOCYTE ESTERASE,URINE NEGATIVE (NEGATIVE); NITRITE,URINE NEGATIVE (NEGATIVE); PROTEIN,URINE NEGATIVE (NEGATIVE); URINE SPECIFIC GRAVITY 1.026; UROBILINOGEN,URINE NEGATIVE mg/dL (<2.0)
--- NOTE | 2019-06-23 15:25 | RADIOLOGY REPORT (SQ) ---
EXAM DESCRIPTION: CT ABD/PELVIS WITH IV ONLY COMPLETED DATE/TIME: 06/23/2019 3:09 pm REASON FOR STUDY: R flank pain, persistent N/V/D COMPARISON: 01/20/2015 TECHNIQUE: CT scan of the abdomen and pelvis performed using helical scanning technique with dynamic intravenous contrast injection. No oral contrast. Images reviewed with lung, soft tissue, and bone windows. Reconstructed coronal and sagittal MPR images reviewed. Delayed images for evaluation of the urinary system also acquired. All images stored on PACS. All CT scanners at this facility use dose modulation, iterative reconstruction, and/or weight based d osing when appropriate to reduce radiation dose to as low as reasonably achievable (ALARA). [facility]: Dose Right [facility]: CareDose [facility]: Dose Right [facility]: Teradose 4D [facility]: [place] CONTRAST TYPE AND DOSE: contrast/concentration: Isovue 350.00 mg/ml; Total Contrast Delivered: 95.0 ml; Total Saline Delivered: 72.0 ml RENAL FUNCTION: BUN 10, creatinine 0.6 RADIATION DOSE: CT Rad equipment meets quality standard of care and radiation dose reduction techniq ues were employed. CTDIvol: NaN - NaN mGy. DLP: 0 mGy-cm.. LIMITATIONS: None. FINDINGS: LOWER CHEST: Focal opacity in the right base is unchanged from 2015 most likely scar. LIVER: There is fatty infiltration of the liver. SPLEEN: Normal size. No focal lesions. PANCREAS: No masses. No significant calcifications. No adjacent inflammation or peripancreatic fluid collections. Pancreatic duct not dilated. GALLBLADDER: No identified stones by CT criteria. No inflammatory changes to suggest cholecystitis. ADRENAL GLANDS: No significant masses or asymmetry. RIGHT KIDNEY AND URETER: No solid masses. No significant calcifications. No hydronephrosis or hyd roureter. LEFT KIDNEY AND URETER: No solid masses. No significant calcifications. No hydronephrosis or hydr oureter. AORTA AND VESSELS: No aneurysm. No dissection. Renal arteries, SMA, celiac without stenosis. RETROPERITONEUM: Occasional small retroperitoneal nodes. These are nonspecific but most likely react maribel. BOWEL AND PERITONEAL CAVITY: No masses or inflammatory changes. No free fluid or peritoneal masses. APPENDIX: Normal. PELVIS: No mass. No free fluid. Normal bladder. ABDOMINAL WALL: No masses. No hernias. BONES: No significant or acute findings. OTHER: No other significant finding. IMPRESSION: Scattered small retroperitoneal lymph nodes. These are nonspecific but most likely reac tive. No other significant findings in the abdomen or pelvis. TECHNICAL DOCUMENTATION: JOB ID: [id number] Quality ID # [id number]: Final reports with documentation of one or more dose reduction techniques (e.g., Au tomated exposure control, adjustment of the mA and/or kV according to patient size, use of iterative reconstruction technique) 2010 [employer]- All Rights Reserved Reading location - IP/workstation name: [email or web address]
[2019-06-23 15:47] VITALS: BP 134/100
== END 2019-06-23 16:33 | disposition home or self-care (01) ==
LOC: ER 10:09
DX: R11.2 Nausea with vomiting, unspecified (principal); R19.7 Diarrhea, unspecified; R10.9 Unspecified abdominal pain; E78.00 Pure hypercholesterolemia, unspecified; I10 Essential (primary) hypertension; E11.9 Type 2 diabetes mellitus without complications
CPT/HCPCS: 36415; 83690; 85025; 80053; 81001; 74177; J3010; J2405; 96374; 96375; 99284

== ENCOUNTER → 2019-12-18 | Outpatient (CLI) | payer MEDICARE ==
--- NOTE | 2019-12-18 08:29 | RADIOLOGY REPORT (SQ) ---
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 TECHNIQUE: Axial images acquired through the brain without intravenous contrast. Images reviewed wi th bone, brain and subdural windows. Additional sagittal and coronal reconstructions were generated. Images stored on PACS. All CT scanners at this facility use dose modulation, iterative reconstruction, and/or weight based d osing when appropriate to reduce radiation dose to as low as reasonably achievable (ALARA). [facility]: Dose Right [facility]: CareDose [facility]: Dose Right [facility]: Teradose 4D [facility]: [place] RADIATION DOSE: CT Rad equipment meets quality standard of care and radiation dose reduction techniq ues were employed. CTDIvol: 48.6 mGy. DLP: 881 mGy-cm. mGy. LIMITATIONS: None. FINDINGS: VENTRICLES: Normal size and contour. CEREBRUM: No masses. No hemorrhage. No midline shift. No evidence for acute infarction. Normal gra y/white matter differentiation. No areas of low density in the white matter. CEREBELLUM: No masses. No hemorrhage. No alteration of density. No evidence for acute infarction. EXTRAAXIAL SPACES: No fluid collections. No masses. ORBITS AND GLOBE: No intra- or extraconal masses. Normal contour of globe without masses. CALVARIUM: No fracture. PARANASAL SINUSES: No fluid or mucosal thickening. SOFT TISSUES: No mass or hematoma. OTHER: No other significant finding. IMPRESSION: NORMAL BRAIN CT WITHOUT CONTRAST. EVIDENCE OF ACUTE STROKE: NO. COMMENT: Quality ID # [id number]: Final reports with documentation of one or more dose reduction techniques (e.g., Automated exposure control, adjustment of the mA and/or kV according to patient size, use of iterative reconstruction technique) TECHNICAL DOCUMENTATION: JOB ID: [id number] 2010 [employer]- All Rights Reserved Reading location - IP/workstation name: [email or web address]
== END ==
LOC: RAD 08:00
PROVIDERS: ATTEND Internal Medicine
DX: G51.0 Bell's palsy (principal)
CPT/HCPCS: 70450

== ENCOUNTER 2020-07-19 01:54 | Emergency (ER) | payer MEDICARE, MEDICAID ==
[2020-07-19] MEDS ORDERED: NORMAL SALINE 1000 ML 1,000 ML IV ONE (04:36)
[2020-07-19 05:22] LABS: APPEARANCE,URINE CLEAR; BILIRUBIN,URINE NEGATIVE (NEGATIVE); COLOR,URINE STRAW; GLUCOSE, URINE >=500 mg/dL (NEGATIVE); KETONES,URINE TRACE mg/dL (NEGATIVE); PROTEIN,URINE 30 mg/dL (NEGATIVE); URINE SPECIFIC GRAVITY 1.033; UROBILINOGEN,URINE NEGATIVE mg/dL (<2.0)
[2020-07-19 05:27] LABS: VENOUS BLOOD BASE EXCESS -2.1 mmol/L; VENOUS BLOOD HCO3 23.1 mmol/L (20-32); VENOUS BLOOD PCO2 41.1 mmHg (35-63); VENOUS BLOOD PH 7.37 (7.30-7.42)
--- NOTE | 2020-07-19 05:31 | RADIOLOGY REPORT (SQ) ---
XR CHEST 1 VIEW CLINICAL STATEMENT: DM SZ CP COMPARISON: 05/04/2016 FINDINGS: Cardiomediastinal silhouette is within normal limits. There is no focal lung consolidation or pleural effusion. No evidence of pulmonary edema or pneumothorax. IMPRESSION: No acute cardiopulmonary disease.
[2020-07-19 05:41] LABS: ALBUMIN 3.9 g/dL (3.5-5.0); ALKALINE PHOSPHATASE 133 U/L (38-126); ANION GAP 13 (5-19); ASPARTATE AMINO TRANSFERASE 27 U/L (17-59); BILIRUBIN,DIRECT 0.3 mg/dL (0.0-0.4); BILIRUBIN,TOTAL 0.6 mg/dL (0.2-1.3); BLOOD UREA NITROGEN 16 mg/dL (7-20); CALCIUM 9.3 mg/dL (8.4-10.2); CARBON DIOXIDE 22 mmol/L (22-30); CHLORIDE 100 mmol/L (98-107); CREATINE KINASE 63 U/L (55-170); PHOSPHORUS 2.9 mg/dL (2.5-4.5); POTASSIUM 4.1 mmol/L (3.6-5.0); TOTAL PROTEIN 6.5 g/dL (6.3-8.2)
[2020-07-19 06:08] LABS: GLUCOSE 432 mg/dL (75-110)
--- NOTE | 2020-07-19 06:10 | ER Document Report ---
ED Medical Screen (RME) - General Chief Complaint: Probable Seizure Stated Complaint: POSSIBLE SEIZURE Primary Care Provider: SAM BARRIOS MD [Primary Care Provider] - Follow up as needed Notes: 35-year-old male with diabetes, asthma, hypertension, MARLINE, hyperlipidemia presents with possible seizure. Patient says that he felt both of his hands tighten up suddenly and then lost consciousness, when he came to he had some confusion and is now back at his mental status baseline. Patient denies any prior episodes of seizure, alcohol, or drug use. Patient has been having a constellation of symptoms over the past few weeks since including diarrhea of 2 loose nonblack nonbloody stools per day, anterior lateral right neck pain, urinary frequency, and hyperglycemia. Patient also endorses inferior midline chest pain like intermittent pinching sensation since arrival to the ED and 1 day of cough. Patient denies exertional chest pain, pleuritic chest pain, lower extremity edema, fever, headache TRAVEL OUTSIDE OF THE [place] IN LAST 30 DAYS: No - Related Data Allergies/Adverse Reactions: diphenhydramine HCl [From Benadryl] Allergy (Mild, Verified 06/23/19 11:53) Hives Past Medical History - General Information source: Patient - Social History Chew tobacco use (# tins/day): No Frequency of alcohol use: None Drug Abuse: None - Past Medical History Cardiac Medical History: Reports: Hx Hypercholesterolemia, Hx Hypertension Denies: Hx Atrial Fibrillation Pulmonary Medical History: Reports: Hx Asthma - inhalers, Hx Bronchitis, Hx Pneumonia, Hx Sleep Apnea - uses C-Pap Endocrine Medical History: Reports: Hx Diabetes Mellitus Type 2, Hx Hypothyroidism. Denies: Hx Diabetes Mellitus Type 1 Renal/ Medical History: Denies: Hx Peritoneal Dialysis GI Medical History: Reports: Hx Gastroesophageal Reflux Disease Musculoskeltal Medical History: Reports Hx Arthritis, Reports Hx Musculoskeletal Deformity Psychiatric Medical History: Reports: Hx Anxiety, Hx Depression Past Surgical History: Reports: Hx Adenoidectomy, Hx Myringotomy, Other - Reconstruction of face after dog attack. Denies: Hx Abdominal Surgery, Hx Appendectomy, Hx Bowel Surgery, Hx Cardiac Catheterization, Hx Cardiac Surgery, Hx Cholecystectomy, Hx Genitourinary Surgery, Hx Kidney (Renal Surgery), Hx Neurologic Surgery, Hx Nose Surgery, Hx Open Heart Surgery, Hx Oral Surgery, Hx Orthopedic Surgery, Hx Pancreatic Surgery, Hx Pituitary Surgery, Hx Rectal Surgery, Hx Testicular Surgery, Hx Thyroid Surgery, Hx Tonsillectomy, Hx Urinary Tract Surgery, Hx Vascular Surgery - Immunizations Hx Diphtheria, Pertussis, Tetanus Vaccination: No - unknown Review of Systems - Review of Systems Notes: No vomiting, positive epigastric abdominal pain Physical Exam - Vital signs Vitals: Resp Pulse Ox 10 L 95 07/19/20 02:09 07/19/20 02:09 - Notes Notes: Awake and alert, tachycardic, mild epigastric tenderness Course - Re-evaluation Re-evalutation: I have greeted and performed a rapid initial assessment of this patient. A c omprehensive ED assessment and evaluation of the patient, analysis of test results and completion of medical decision making process will be conducted by additional ED providers. - Vital Signs Vital signs: Temp Pulse Resp BP Pulse Ox 98.5 F 16 177/120 H 96 07/19/20 02:32 07/19/20 04:01 07/19/20 04:01 07/19/20 04:01 - Laboratory Results Result Diagrams: 07/19/20 02:00 07/19/20 02:00 Laboratory Results Interpreted: 07/19/20 04:53 Urine Protein 30 H Urine Glucose (UA) >=500 H Urine Ketones TRACE H Urine Blood SMALL H Doctor's Discharge - Discharge Referrals: SAM BARRIOS MD [Primary Care Provider] - Follow up as needed
--- NOTE | 2020-07-19 06:10 | RADIOLOGY REPORT (SQ) ---
EXAM DESCRIPTION: CT HEAD WITHOUT IV CONTRAST COMPLETED DATE/TME: 07/19/2020 05:35 CLINICAL HISTORY: 35 years Male, first SZ h/o dm COMPARISON: None. TECHNIQUE: No contrast. Coronal and sagittal reformat. This exam was performed according to our departmental dose-optimization program, which includes automated exposure control, adjustment of the mA and/or kV according to patient size and/or use of iterative reconstruction technique. FINDINGS: Small acute dural and subarachnoid hemorrhage along the interhemispheric falx measures up to 0.5 cm in thickness. There is possible minimal convexity subarachnoid hemorrhage at the right frontal lobe, image 25 of series 2. No infarct. No mass, mass effect, or midline shift. Atherosclerosis. Brain and extra-axial structures appear otherwise intact. IMPRESSION: POSITIVE for intracranial hemorrhage. Small acute dural and subarachnoid hemorrhage including along the interhemispheric falx measures up to 0.5 cm in thickness. Differential diagnosis for spontaneous intracranial hemorrhage in young adults, < 45 years old includes vascular malformation, drug abuse, venous thrombosis, PRES, vasculitis, and neoplasm. Recommend immediate NEUROSURGICAL consultation.
--- NOTE | 2020-07-19 06:34 | ER Document Report ---
Doctor's Note Notes: 07/19/20 06:33 Was informed of critical values of elevated glucose, lactate of >3, and subarachnoid hemorrhage on CT. Informed Dr. Ervin of these findings as he will be primary treating physician.
[2020-07-19] MEDS ORDERED: LEVETIRACETAM 1000 MG/NACL-ISO 1,000 MG/100 ML RTUPB IV ONE (06:43)
[2020-07-19] MEDS ORDERED: HYDROMORPHONE HCL INJ/PF 2 MG/ML AMPULE IV ONE (06:52)
[2020-07-19 07:25] LABS: HEMOGLOBIN 14.4 g/dL (13.5-17.0); MEAN CORPUSCULAR HEMOGLOBIN 27.4 pg (27.0-33.4); MEAN CORPUSCULAR HGB CONC 33.5 g/dL (32.0-36.0); MEAN CORPUSCULAR VOLUME 82 fl (80-97); RED BLOOD COUNT 5.25 10^6/uL (4.35-5.55); RED CELL DISTRIBUTION WIDTH 16.2 % (11.5-14.0); WHITE BLOOD COUNT 16.5 10^3/uL (4.0-10.5)
[2020-07-19] MEDS ORDERED: ONDANSETRON HCL INJ/PF 4 MG/2 ML SDV IV ONE (07:33)
[2020-07-19] MEDS ORDERED: INSULIN REG, HUMAN 100 UNIT/ML 3 ML VIAL (PYX) IV ONE (07:36)
[2020-07-19 07:59] LABS: PLATELET COUNT 3 10^3/uL (150-450)
[2020-07-19 08:01] LABS: ABSOLUTE LYMPHOCYTES# (MANUAL) 2.8 10^3/uL (0.5-4.7); ABSOLUTE MONOCYTES # (MANUAL) 0.8 10^3/uL (0.1-1.4); BAND NEUTROPHILS % (MANUAL) 2 % (3-5); BASOPHILS % (MANUAL) 0 % (0-2); EOSINOPHILS % (MANUAL) 0 % (0-6); LYMPHOCYTES % (MANUAL) 17 % (13-45); METAMYELOCYTES % (MANUAL) 2 % (0-1); MONOCYTES % (MANUAL) 5 % (3-13); SEGMENTED NEUTROPHILS % (MAN) 73 % (42-78); TOTAL CELLS COUNTED 100
[2020-07-19 08:02] LABS: ANISOCYTOSIS 1+; POLYCHROMASIA 1+
[2020-07-19 08:03] LABS: MYELOCYTES % (MANUAL) 1 % (0); PLATELET COMMENT DECREASED
[2020-07-19 08:51] VITALS: BP 111/77
--- NOTE | 2020-07-19 09:52 | EKG REPORT ---
SEVERITY:- OTHERWISE NORMAL ECG - SINUS TACHYCARDIA : Confirmed by: Syeda Ozuna MD 19-Jul-2020 09:51:09
[2020-07-19 13:17] LABS: PATH REVIEW PATHOLOGIST REVIEWED
== END 2020-07-19 09:02 | disposition short-term general hospital (02) ==
LOC: ER 01:54
DX: I60.9 Nontraumatic subarachnoid hemorrhage, unspecified (principal); R56.9 Unspecified convulsions; E11.65 Type 2 diabetes mellitus with hyperglycemia; R51.9 Headache, unspecified; R10.13 Epigastric pain; E78.00 Pure hypercholesterolemia, unspecified; I10 Essential (primary) hypertension; Z20.822 Contact with and (suspected) exposure to COVID-19
CPT/HCPCS: 93005; 99285; 96361; 96374; 96375; 36415; 82550; 83605; 83690; 83735; 84100; 85025; 0241U ×4; 80053; 81001; 84484; 85379; 82803; 71045; 70450; 93010; J1170; A9270; J2405; J7030; J1953; C9803; J1815

== ENCOUNTER 2020-07-28 18:21 | Emergency (ER) | payer MEDICARE, MEDICAID ==
--- NOTE | 2020-07-28 18:37 | ER Document Report ---
ED Medical Screen (RME) - General Chief Complaint: Chest Tightness Stated Complaint: CHEST TIGHTNESS Primary Care Provider: SAM BARRIOS MD [Primary Care Provider] - Follow up as needed TRAVEL OUTSIDE OF THE [place] IN LAST 30 DAYS: No - HPI Notes: Patient is a 35 y/o male who presents with left arm weakness and numbness that began 30 minutes prior to arrival. Patient was seen in the emergency department on 07/19/20 for new onset seizure and was diagnosed with SAH and transferred to [facility]. Patient states his left hand feels like it is tightening up like it did prior to his seizure. He reports palpitations and is extremely anxious and tearful. - Related Data Allergies/Adverse Reactions: diphenhydramine HCl [From Benadryl] Allergy (Mild, Verified 06/23/19 11:53) Hives Past Medical History - Past Medical History Cardiac Medical History: Reports: Hx Hypercholesterolemia, Hx Hypertension Denies: Hx Atrial Fibrillation Pulmonary Medical History: Reports: Hx Asthma - inhalers, Hx Bronchitis, Hx Pneumonia, Hx Sleep Apnea - uses C-Pap Endocrine Medical History: Reports: Hx Diabetes Mellitus Type 2, Hx Hypothyroidism. Denies: Hx Diabetes Mellitus Type 1 Renal/ Medical History: Denies: Hx Peritoneal Dialysis GI Medical History: Reports: Hx Gastroesophageal Reflux Disease Musculoskeltal Medical History: Reports Hx Arthritis, Reports Hx Musculoskeletal Deformity Psychiatric Medical History: Reports: Hx Anxiety, Hx Depression Past Surgical History: Reports: Hx Adenoidectomy, Hx Myringotomy, Other - Reconstruction of face after dog attack. Denies: Hx Abdominal Surgery, Hx Appendectomy, Hx Bowel Surgery, Hx Cardiac Catheterization, Hx Cardiac Surgery, Hx Cholecystectomy, Hx Genitourinary Surgery, Hx Kidney (Renal Surgery), Hx Neurologic Surgery, Hx Nose Surgery, Hx Open Heart Surgery, Hx Oral Surgery, Hx Orthopedic Surgery, Hx Pancreatic Surgery, Hx Pituitary Surgery, Hx Rectal Surgery, Hx Testicular Surgery, Hx Thyroid Surgery, Hx Tonsillectomy, Hx Urinary Tract Surgery, Hx Vascular Surgery - Immunizations Hx Diphtheria, Pertussis, Tetanus Vaccination: No - unknown Physical Exam - Neurological Cognition: Normal Mike Coma Scale Eye Opening: Spontaneous Vale Coma Scale Verbal: Oriented Mike Coma Scale Motor: Obeys Commands Vale Coma Scale Total: 15 Speech: Normal Motor strength normal: LUE, RUE, LLE, RLE Additional motor exam 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 No: Pronator drift Course - Re-evaluation Re-evalutation: I have greeted and performed a rapid initial assessment of this patient. A comprehensive ED assessment and evaluation of the patient, analysis of test results and completion of medical decision making process will be conducted by an additional ED providers. Doctor's Discharge - Discharge Referrals: SAM BARRIOS MD [Primary Care Provider] - Follow up as needed
--- NOTE | 2020-07-28 19:02 | RADIOLOGY REPORT (SQ) ---
EXAM DESCRIPTION: CT HEAD WITHOUT IMAGES COMPLETED DATE/TIME: 07/28/2020 6:51 pm REASON FOR STUDY: recent SAH and arm numbness COMPARISON: 12/18/2019 07/19/2020 TECHNIQUE: Axial images acquired through the brain without intravenous contrast. Images reviewed wi th bone, brain and subdural windows. Additional sagittal and coronal reconstructions were generated. Images stored on PACS. All CT scanners at this facility use dose modulation, iterative reconstruction, and/or weight based d osing when appropriate to reduce radiation dose to as low as reasonably achievable (ALARA). [facility]: Dose Right [facility]: CareDose [facility]: Dose Right [facility]: Teradose 4D [facility]: Voddler RADIATION DOSE: CT Rad equipment meets quality standard of care and radiation dose reduction techniq ues were employed. CTDIvol: 53.2 mGy. DLP: 1017 mGy-cm. mGy. LIMITATIONS: None. FINDINGS: VENTRICLES: Normal size and contour. CEREBRUM: No masses. No hemorrhage. No midline shift. No evidence for acute infarction. Normal gra y/white matter differentiation. No areas of low density in the white matter. CEREBELLUM: No masses. No hemorrhage. No alteration of density. No evidence for acute infarction. EXTRAAXIAL SPACES: There is no new subarachnoid hemorrhage or subdural hemorrhage. ORBITS AND GLOBE: No intra- or extraconal masses. Normal contour of globe without masses. CALVARIUM: No fracture. PARANASAL SINUSES: No fluid or mucosal thickening. SOFT TISSUES: No mass or hematoma. OTHER: No other significant finding. IMPRESSION: There is no acute hemorrhage. There is no acute intracranial imaging finding. EVIDENCE OF ACUTE STROKE: NO. COMMENT: Quality ID # [id number]: Final reports with documentation of one or more dose reduction techniques (e.g., Automated exposure control, adjustment of the mA and/or kV according to patient size, use of iterative reconstruction technique) TECHNICAL DOCUMENTATION: JOB ID: [id number] 2010 [employer]- All Rights Reserved Reading location - IP/workstation name: [email or web address]
--- NOTE | 2020-07-28 19:05 | RADIOLOGY REPORT (SQ) ---
EXAM DESCRIPTION: CHEST SINGLE VIEW IMAGES COMPLETED DATE/TIME: 07/28/2020 6:57 pm REASON FOR STUDY: palpitations COMPARISON: 07/19/2020 EXAM PARAMETERS: NUMBER OF VIEWS: One view. TECHNIQUE: Single frontal radiographic view of the chest acquired. RADIATION DOSE: NA LIMITATIONS: None. FINDINGS: LUNGS AND PLEURA: No opacities, masses or pneumothorax. No pleural effusion. MEDIASTINUM AND HILAR STRUCTURES: No masses. Contour normal. HEART AND VASCULAR STRUCTURES: Heart normal in size. Normal vasculature. BONES: No acute findings. HARDWARE: None in the chest. OTHER: No other significant finding. IMPRESSION: NO ACUTE RADIOGRAPHIC FINDING IN THE CHEST. TECHNICAL DOCUMENTATION: JOB ID: [id number] 2010 [employer]- All Rights Reserved Reading location - IP/workstation name: [email or web address]
[2020-07-28 19:30] LABS: ABSOLUTE BASOPHILS # (AUTO) 0.1 10^3/uL (0.0-0.2); ABSOLUTE EOSINOPHILS # (AUTO) 0.1 10^3/uL (0.0-0.6); ABSOLUTE LYMPHOCYTES (AUTO) 2.4 10^3/uL (0.5-4.7); ABSOLUTE MONOCYTES (AUTO) 1.1 10^3/uL (0.1-1.4); ABSOLUTE NEUT (AUTO) 6.4 10^3/uL (1.7-8.2); BASOPHILS % (AUTO) 0.6 % (0-2); EOSINOPHILS % (AUTO) 1.1 % (0-6); HEMATOCRIT 44.5 % (37.9-51.0); HEMOGLOBIN 15.2 g/dL (13.5-17.0); LYMPHOCYTES % (AUTO) 23.6 % (13-45); MEAN CORPUSCULAR HEMOGLOBIN 27.8 pg (27.0-33.4); MEAN CORPUSCULAR HGB CONC 34.2 g/dL (32.0-36.0); MEAN CORPUSCULAR VOLUME 81 fl (80-97); MONOCYTES % (AUTO) 10.6 % (3-13); PLATELET COUNT 205 10^3/uL (150-450); RED BLOOD COUNT 5.46 10^6/uL (4.35-5.55); RED CELL DISTRIBUTION WIDTH 15.3 % (11.5-14.0); SEGMENTED NEUTROPHILS % (AUTO) 64.1 % (42-78); TOTAL CELLS COUNTED % (AUTO) 100 %
[2020-07-28 19:47] LABS: ALBUMIN 3.5 g/dL (3.5-5.0); ALKALINE PHOSPHATASE 79 U/L (38-126); ANION GAP 8 (5-19); ASPARTATE AMINO TRANSFERASE 53 U/L (17-59); BILIRUBIN,DIRECT 0.2 mg/dL (0.0-0.4); BILIRUBIN,TOTAL 0.4 mg/dL (0.2-1.3); BLOOD UREA NITROGEN 21 mg/dL (7-20); CALCIUM 9.3 mg/dL (8.4-10.2); CARBON DIOXIDE 27 mmol/L (22-30); CHLORIDE 100 mmol/L (98-107); GLUCOSE 203 mg/dL (75-110); POTASSIUM 4.3 mmol/L (3.6-5.0); TOTAL PROTEIN 7.2 g/dL (6.3-8.2)
--- NOTE | 2020-07-28 19:57 | EKG REPORT ---
SEVERITY:- NORMAL ECG - SINUS RHYTHM : Confirmed by: Silvio Izquierdo MD 28-Jul-2020 19:56:30
[2020-07-28] MEDS ORDERED: METOCLOPRAMIDE HCL INJ/PF 10 MG/2 ML SDV IV ONE (21:06)
[2020-07-28] MEDS ORDERED: NORMAL SALINE 1000 ML 1,000 ML IV ONE (21:06)
[2020-07-28] MEDS ORDERED: SUMATRIPTAN SUCCINATE INJ/PF 6 MG/0.5 ML SDV SUBCUT ONE (21:07)
--- NOTE | 2020-07-28 21:11 | ER Document Report ---
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 Patient had platelet transfusion and steroids and was released f [facility] approximately 5 days ago and patient says that since the event he has had persistent headache which is now resolved associated with left arm and left leg tingling sensation and subjective numbness. Patient has not had any worsening of his symptoms, but has been frustrated by the lack of improvement in his headache. Patient denies any bruising, worsening headache, trauma, change in vision/speech/gait, weakness, fever, vertigo, drug use. Patient also had brief episode of chest pain which she described as retrosternal radiating up to neck that began at rest while he was watching TV approximately 1 hour prior to arrival that lasted for about an hour and then resolved without intervention. Patient says he has had similar chest pain when he has had reflux in the past. Patient's chest pain is resolved in the ED. Patient denies any exertional chest pain, cardiac history, shortness of breath, diaphoresis, vomiting, abdominal pain, diarrhea, black stool, bloody stool, lower extremity edema, DVT/PE/hypercoagulability history in self or family, prior malignancy history, cough or hemoptysis, recent travel/trauma/surgery/immobilization, exogenous estrogen therapy TRAVEL OUTSIDE OF THE [place] IN LAST 30 DAYS: No - Related Data Allergies/Adverse Reactions: diphenhydramine HCl [From Benadryl] Allergy (Mild, Verified 07/28/20 20:00) Hives Home Medications: DM, HTN, anxiety Past Medical History - General Information source: Patient - Social History Smoking Status: Never Smoker Family History: CVA, DM, Hyperlipidemia, Hypertension, Malignancy, Thyroid Disfunction Patient has homicidal ideation: No - Past Medical History Cardiac Medical History: Reports: Hx Hypercholesterolemia, Hx Hypertension Denies: Hx Atrial Fibrillation Pulmonary Medical History: Reports: Hx Asthma - inhalers, Hx Bronchitis, Hx Pneumonia, Hx Sleep Apnea - uses C-Pap Endocrine Medical History: Reports: Hx Diabetes Mellitus Type 2, Hx Hypothyroidism. Denies: Hx Diabetes Mellitus Type 1 Renal/ Medical History: Denies: Hx Peritoneal Dialysis GI Medical History: Reports: Hx Gastroesophageal Reflux Disease Musculoskeletal Medical History: Reports Hx Arthritis, Reports Hx Musculoske letal Deformity Psychiatric Medical History: Reports: Hx Anxiety, Hx Depression Past Surgical History: Reports: Hx Adenoidectomy, Hx Myringotomy, Other - Reconstruction of face after dog attack. Denies: Hx Abdominal Surgery, Hx Appendectomy, Hx Bowel Surgery, Hx Cardiac Catheterization, Hx Cardiac Surgery, Hx Cholecystectomy, Hx Genitourinary Surgery, Hx Kidney (Renal Surgery), Hx Neurologic Surgery, Hx Nose Surgery, Hx Open Heart Surgery, Hx Oral Surgery, Hx Orthopedic Surgery, Hx Pancreatic Surgery, Hx Pituitary Surgery, Hx Rectal Surgery, Hx Testicular Surgery, Hx Thyroid Surgery, Hx Tonsillectomy, Hx Urinary Tract Surgery, Hx Vascular Surgery - Immunizations Hx Diphtheria, Pertussis, Tetanus Vaccination: No - unknown Review of Systems - Review of Systems Notes: REVIEW OF SYSTEMS: CONSTITUTIONAL : Denies fever, chills, or sweats. EENT: Denies recent cold/sinus symptoms, denies throat pain CARDIOVASCULAR: + chest pain, -CAROLE RESPIRATORY: Denies cough, denies shortness of breath. GASTROINTESTINAL: Denies abdominal pain, nausea/vomiting. GENITOURINARY: Denies difficulty urinating, painful urination. MUSCULOSKELETAL: Denies neck pain, back pain. SKIN: Denies rash or skin lesions. HEMATOLOGIC : Denies easy bruising or bleeding. LYMPHATIC: Denies swollen, enlarged glands. NEUROLOGICAL: + headache, denies change in gait. PSYCHIATRIC: Denies anxiety or stress or depression. Physical Exam - Vital signs Vitals: Temp Pulse Resp BP Pulse Ox 98.9 F 90 20 137/96 H 100 07/28/20 18:43 07/28/20 18:43 07/28/20 18:43 07/28/20 18:43 07/28/20 18:43 - Notes Notes: PHYSICAL EXAMINATION: GENERAL: Well-appearing, well-nourished and in no acute distress. HEAD: Atraumatic, normocephalic. EYES: Pupils equal round and appropriate constriction, sclera anicteric, conjunctiva are normal. ENT: nares patent, moist mucous membranes. NECK: Normal range of motion, supple without lymphadenopathy LUNGS: Breath sounds clear to auscultation bilaterally and equal. No wheezes rales or rhonchi. Normal respiratory rate and effort HEART: Regular rate and rhythm without murmurs, no chest tenderness ABDOMEN: Soft, nontender, no guarding, no masses, no CVAT EXTREMITIES: Normal range of motion, no pitting or edema. No cyanosis. NEUROLOGICAL: Awake, alert, conversing appropriately, moves all extremities spontaneously, cranial nerves II through XII intact bilaterally, normal fi [id number] bilaterally, 5 out of 5 strength in all extremities, normal sensation in all extremities PSYCH: Normal mood, normal affect. SKIN: Warm, Dry, normal turgor, few pale yellow ecchymoses on legs with no new bruising Course - Re-evaluation Re-evalutation: 07/28/20 21:16 Patient very well-appearing, normal vitals, normal exam. Patient's respiratory rate recorded as being bradypneic which is not consistent with patient's exam and was normal on repeat, this was likely an equipment reading error. Patient with persistent headache and left sided tingling, subjective numbness since subarachnoid hemorrhage a week ago, no worsening symptoms. Atypical for ACS, but will order lab given patient's risk factors. No signs of ischemia on initial EKG (repeated initial because poor baseline on EKG done on arrival) patient PERC negative, no immobilization during recent hospitalization as patient was completely ambulatory and functional when he had his intracranial hemorrhage. Will treat headache symptoms, check platelets and hemoglobin, obtain CT head, check troponin and repeat troponin at 4 hours and if no emergent findings DC with primary care and cardiology follow-up and return precautions. 07/28/20 22:56 Patient's headache is not significantly improved, however additional analgesia, no return of chest pain 07/28/20 23:54 Patient now feels greatly improved, waiting on results of second troponin for likely discharge. 07/28/20 23:55 Patient second troponin remains normal, patient feels improved, ready for di scharge with PCP and cardiology follow-up. Gave extensive return to ED precautions which he demonstrated understanding of, HEART Score 3. Patient has neurology appointment scheduled ready for this coming week. - Vital Signs Vital signs: Temp Pulse Resp BP Pulse Ox 98.9 F 98 19 163/90 H 98 07/28/20 18:43 07/28/20 20:00 07/28/20 23:01 07/28/20 23:01 07/28/20 23:01 - Laboratory Results Result Diagrams: 07/28/20 19:02 07/28/20 19:02 Laboratory Results Interpreted: 07/28/20 07/28/20 07/28/20 19:02 19:02 19:02 RDW 15.3 H Sodium 134.9 L BUN 21 H Glucose 203 H Phosphorus 5.1 H ALT 68 H Creatine Kinase 34 L Critical Laboratory Results Reviewed: No Critical Results - Radiology Results Critical Radiology Results Reviewed: No Critical Results - EKG Interpretation by Me Additional EKG results interpreted by me: 07/29/20 00:05 Initial EKG: Sinus rhythm, wandering baseline, unable to assess ST segments Repeat EKG: Sinus rhythm, no significant ST elevations or depressions, no significant T wave abnormalities Discharge - Discharge Clinical Impression: Headache Qualifiers: Headache type: other complicated headache syndrome Qualified Code(s): G44.59 - Other complicated headache syndrome Chest pain Qualifiers: Chest pain type: unspecified Qualified Code(s): R07.9 - Chest pain, unspecified Disposition: HOME, SELF-CARE Additional Instructions: You have residual headache from your intracranial hemorrhage, however there is no sign of any new hemorrhage. Follow-up with the neurologist next week as scheduled. Chest Pain of Unclear Cause The exact cause of your chest pain isn't clear. Fortunately, there is no evidence of an immediately dangerous medical condition. Further testing may be required to find the source of the pain. Most often, we find that this pain is coming from the chest wall -- the muscles or rib joints in the chest. But chest pain can come from the lung and lung lining, the esophagus, the heart valves or heart lining, and even the stomach or gallbladder. You should call the physician immediately if the pain radiates to the shou lder, jaw or arms; if you start to run a fever or develop a cough; or if you develop shortness of breath, or other new or alarming symptoms. If you have any worsening headache, change in vision/speech/how you walk, confusion, memory loss, weakness or numbness, fever, neck pain or stiffness, vertigo, fainting, worsening chest pain, difficulty breathing, leg swelling, or any other worsening or alarming symptoms return to emergency department immediately. 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 You had several minor abnormalities on your lab work, bring results with you when you follow-up with your primary doctor within 1 week. Prescriptions: Acetaminophen 975 mg PO Q6HP PRN #24 capsule PRN Reason: For Headache Referrals: SAM BARRIOS MD [Primary Care Provider] - Follow up in 1 week FRANCOISE MOREJON MD [ACTIVE PROVISIONAL STAFF] - Follow up in 1 week
[2020-07-28] MEDS ORDERED: FAMOTIDINE 20 MG TABLET PO ONE (21:15)
[2020-07-28 21:30] LABS: PHOSPHORUS 5.1 mg/dL (2.5-4.5)
[2020-07-28] MEDS ORDERED: PROCHLORPERAZINE EDISYLATE INJ 10 MG/2 ML VIAL IV ONE (22:49)
[2020-07-28] MEDS ORDERED: BUTALB/ACETAMINOPHEN/CAFFEINE 1 TAB EACH PO ONE (22:58)
[2020-07-28] MEDS ORDERED: ACETAMINOPHEN 325 MG TABLET PO ONE (22:58)
[2020-07-29 00:46] VITALS: BP 127/79
--- NOTE | 2020-07-29 07:24 | EKG REPORT ---
SEVERITY:- NORMAL ECG - SINUS RHYTHM : Confirmed by: Silvio Izquierdo MD 29-Jul-2020 07:23:35
== END 2020-07-29 00:18 | disposition home or self-care (01) ==
LOC: ER 18:21
DX: G44.59 Other complicated headache syndrome (principal); R07.9 Chest pain, unspecified; R53.1 Weakness; R20.0 Anesthesia of skin; E78.00 Pure hypercholesterolemia, unspecified; I10 Essential (primary) hypertension; E11.9 Type 2 diabetes mellitus without complications
CPT/HCPCS: 93005 ×2; 99285; 96372; 96361; 96374; 96375; 36415; 82550; 83735; 84100; 85025; 80053; 84484; 71045; 70450; 93010; A9270 ×3; J2765; J0780; J3030; J7030; J3490